=== PATIENT | male | born 1985 ===

== ENCOUNTER 2016-07-05 09:57 | Emergency (ER) | payer OTHER, MEDICAID ==
[2016-07-05 10:13] VITALS: BP 143/77; PULSE 63; RESP 16; TEMP 97.9; O2SAT 100
--- NOTE | 2016-07-05 11:14 | C.PDOC ---
History Of Present Illness 31 YO MALE C/O PERSISTENT, NON-HEALING WOUND ON HIS LEFT THUMB FOR 2 WEEKS. INITIAL INJURY 2 WEEKS AGO SUSTAINED DURING ACCIDENTAL CUT AT WORK. PT RECEIVED 7 STITCHES AT WORK. PT STATES HIS JOB WANTED HIM TO CONTINUE WORKING. NOTES STITCHES CONTINUED TO POP OPEN, WITH PUS DRAINAGE FROM THE WOUND. PATIENT C/O PAIN AND SWELLING TO THE AREA. PT STATES HE IS RIGHT HANDED. PT NOTES HE HAS BEEN USING PEROXIDE TO CLEAN THE WOUND. DENIES FEVER, CHILLS, OR OTHER COMPLAINTS. EXAM 2 CM LINEAR LAC, MEDIAN BASE OF LEFT THUMB, WITH SOME LOCAL SWELLING AND TENDERNESS. NO ABSCESS, NO OBVIOUS PUS. OLD HEALING WOUND. NO CELLULITIS. GOOD ROM OF THUMB. Time Seen by Provider: 07/05/16 10:57 Chief Complaint (Nursing): Finger,Hand,&Wrist History Per: Patient History/Exam Limitations: no limitations Onset/Duration Of Symptoms: Days Ago (14), Laceration Current Symptoms Are (Timing): Still Present Location Of Injury: Left: Hand (THUMB) Quality Of Symptoms: Painful, Swollen Recent travel outside of the [place]: No Past Medical History Reviewed: Historical Data, Nursing Documentation, Vital Signs Vital Signs: Last Vital Signs Temp 97.9 F 07/05/16 10:12 Pulse 63 07/05/16 10:12 Resp 16 07/05/16 10:12 BP 143/77 07/05/16 10:12 Pulse Ox 100 07/05/16 11:24 - Medical History PMH: No Chronic Diseases Family History: States: Unknown Family Hx - Social History Hx Alcohol Use: Yes Hx Substance Use: No - Immunization History Hx Tetanus Toxoid Vaccination: Yes Hx Influenza Vaccination: No Hx Pneumococcal Vaccination: No Review Of Systems Except As Marked, All Systems Reviewed And Found Negative. Constitutional: Negative for: Fever, Chills Skin: Positive for: Other (OLD LACERATION MEDIAL LEFT THUMB) Neurological: Negative for: Weakness, Numbness Physical Exam - Physical Exam Appears: Non-toxic, No Acute Distress Skin: Warm, Dry Head: Atraumatic, Normacephalic Extremity: Normal ROM, Capillary Refill (< 2 SEC.), No Deformity, Other (2.0 CM LINEAR LACERATION TO MEDIAL BASE OF LEFT THUMB, WITH SOME LOCAL SWELLING AND TENDERNESS. NO ABSCESS, NO OBVIOUS PUS. OLD HEALING WOUND. NO CELLULITIS. GOOD ROM OF THUMB. ) Pulses: Left Radial: Normal, Right Radial: Normal Neurological/Psych: Oriented x3, Normal Motor, Normal Sensation ED Course And Treatment O2 Sat by Pulse Oximetry: 100 (RA) Pulse Ox Interpretation: Normal Progress - Re-Evaluation Re-evaluation Note: 07/05/16 11:21 PO ABX, TOPICAL ABX, SPLINT. REFERRAL. Disposition Counseled Patient/Family Regarding: Diagnosis, Need For Followup, Rx Given - Disposition Referrals: [facility] [Outside] [facility] [Outside] Disposition: HOME/ ROUTINE Disposition Time: 11:12 Condition: IMPROVED Prescriptions: Bacitracin [Bacitracin Opht OINT] 1 applic OD Q4 #1 tube Cephalexin [cephalexin] 500 mg PO Q6 #28 cap Ibuprofen [Motrin] 600 mg PO Q6 #30 tab Instructions: Chronic Wound Care (ED) Forms: Work Excuse - Clinical Impression Clinical Impression: Chronic wound of extremity, Cellulitis - Scribe Statement The provider has reviewed the documentation as recorded by the Bull PATTON Provider Attestation: All medical record entries made by the Bull were at my direction and personally dictated by me. I have reviewed the chart and agree that the record accurately reflects my personal performance of the history, physical exam, medical decision making, and the department course for this patient. I have also personally directed, reviewed, and agree with the discharge instructions and disposition. Orthopedic Care Application Of:: Thumb Spica Splint (L HAND)
[2016-07-05] MEDS ORDERED: Bacitracin 500 Units/gm Oint Foilpak UD TOP ONE (11:15)
[2016-07-05] MEDS ORDERED: Bacitracin 500 Units/gm Oint Foilpak UD ONE (11:19)
== END 2016-07-05 11:57 | disposition home or self-care (01) ==
LOC: C.ER 09:57
DX: S61.012D Laceration without foreign body of left thumb without damage to nail, subsequent encounter (principal); L03.012 Cellulitis of left finger; W45.8XXD Other foreign body or object entering through skin, subsequent encounter; Y92.89 Other specified places as the place of occurrence of the external cause; Y99.0 Civilian activity done for income or pay

== ENCOUNTER 2016-10-28 12:04 | Emergency (ER) | payer MEDICAID, OTHER ==
[2016-10-28 12:10] VITALS: O2SAT 99
--- NOTE | 2016-10-28 12:55 | C.PDOC ---
History Of Present Illness A 31 y/o M c/o RLQ pain for a month. Pain is worse when coughing, straining, and lifting weights. Notes a bulge to the RLQ that is now resolved. Denies fever , chills, dysuria, scrotal pain, penile discharge, constipation, nausea, vomiting, diarrhea, or any other complaints. Time Seen by Provider: 10/28/16 12:26 Chief Complaint (Nursing): GI Problem History Per: Patient History/Exam Limitations: no limitations Onset/Duration Of Symptoms: Days (A month) Current Symptoms Are (Timing): Still Present Severity: Mild Location Of Pain/Discomfort: RLQ Radiation Of Pain To:: None Quality Of Discomfort: "Pain" Associated Symptoms: denies: Fever, Chills, Nausea, Vomiting, Diarrhea, Constipation Exacerbating Factors: Cough, Other (Straining and lifting weights) Recent travel outside of the [place]: No Additional History Per: Patient Past Medical History Reviewed: Historical Data, Nursing Documentation, Vital Signs Vital Signs: Last Vital Signs Temp 97.8 F 10/28/16 12:09 Pulse 85 10/28/16 12:09 Resp 18 10/28/16 12:09 BP 108/71 10/28/16 12:09 Pulse Ox 99 10/28/16 15:55 Family History: States: Unknown Family Hx - Social History Hx Alcohol Use: Yes Hx Substance Use: No - Immunization History Hx Tetanus Toxoid Vaccination: Yes Hx Influenza Vaccination: No Hx Pneumococcal Vaccination: No Review Of Systems Except As Marked, All Systems Reviewed And Found Negative. Constitutional: Negative for: Fever, Chills Gastrointestinal: Positive for: Abdominal Pain (RLQ pain). Negative for: Nausea , Vomiting, Diarrhea, Constipation Genitourinary: Negative for: Dysuria, Penile Discharge, Scrotal Pain Physical Exam - Physical Exam Appears: Non-toxic, No Acute Distress Skin: Warm, Dry Head: Atraumatic, Normacephalic Cardiovascular: Rhythm Regular Respiratory: Normal Breath Sounds, No Accessory Muscle Use, No Rales, No Rhonchi , No Wheezing Gastrointestinal/Abdominal: Soft, No Tenderness Male Genital: No Testicular Tenderness, No Other (No hernia palpable in the inguinal region. No penile discharge, no scrotal tenderness.) Extremity: Normal ROM (x4) Neurological/Psych: Oriented x3, Normal Speech, Normal Cognition Gait: Steady ED Course And Treatment - Laboratory Results Result Diagrams: 10/28/16 13:44 10/28/16 13:44 O2 Sat by Pulse Oximetry: 99 (RA) Pulse Ox Interpretation: Normal Medical Decision Making Medical Decision Making: Impression: 31 y/o M c/o RLQ pain for a month. Plans: * Blood work up * Toradol * UA * Reassess * * CT shows "Thick-walled loops of small bowel in the left upper quadrant consistent with enteritis. The appendix is not identified. No secondary signs of acute appendicitis identified." Patient is tolerating po with soft NT/ND abdomen Disposition - Disposition Disposition: HOME/ ROUTINE Disposition Time: 15:54 Condition: GOOD Additional Instructions: Take full course of antibiotics. Return to ED if condition worsens. Take full course of antibiotics. Prescriptions: Ciprofloxacin [Cipro] 500 mg PO BID #20 tab Metronidazole [Flagyl] 500 mg PO TID #30 tab Instructions: Enteritis (ED) Forms: [employer] (Sami), [employer] (Kinyarwanda) Print Language: CZECH - Clinical Impression Clinical Impression: Enteritis - Scribe Statement The provider has reviewed the documentation as recorded by the Scribtaisha daniels All medical record entries made by the Amandaibtaisha were at my direction and personally dictated by me. I have reviewed the chart and agree that the record accurately reflects my personal performance of the history, physical exam, medical decision making, and the department course for this patient. I have also personally directed, reviewed, and agree with the discharge instructions and disposition.
[2016-10-28 13:52] LABS: BASO # 0.1 K/uL (0.0-0.2); BASO % 0.6 % (0.0-2.0); EOS # 0.5 K/uL (0.0-0.7); EOS % 4.2 % (0.0-4.0); HEMOGLOBIN 13.5 g/dL (12.0-18.0); LYMPH # 2.7 K/uL (1.0-4.3); LYMPH % 20.4 % (20.0-40.0); MEAN CELL VOLUME 97.1 fL (80.0-94.0); MEAN CORPUSCULAR HEMOGLOBIN 32.5 pg (27.0-31.0); MEAN CORPUSCULAR HGB CONC 33.5 g/dL (33.0-37.0); MEAN PLATELET VOLUME 7.9 fL (7.2-11.7); MONO # 0.8 K/uL (0.0-0.8); MONO % 6.2 % (0.0-10.0); NEUT # 8.9 K/uL (1.8-7.0); NEUT % 68.6 % (50.0-75.0); NRBC % 0.1 % (0.0-2.0); RBC 4.14 Mil/uL (4.40-5.90); RED CELL DISTRIBUTION WIDTH 13.2 % (11.5-14.5)
[2016-10-28 14:00] LABS: URINE BILIRUBIN NEGATIVE (NEGATIVE); URINE BLOOD NEGATIVE (NEGATIVE); URINE CLARITY Clear (Clear); URINE COLOR Yellow (YELLOW); URINE GLUCOSE (UA) NORMAL (Normal); URINE LEUKOCYTE ESTERASE NEG Leu/uL (Negative); URINE NITRATE NEGATIVE (NEGATIVE); URINE PROTEIN NEGATIVE (NEGATIVE); URINE UROBILINOGEN NORMAL mg/dL (0.2-1.0)
[2016-10-28 14:14] LABS: ALBUMIN 3.5 g/dL (3.5-5.0)
[2016-10-28 14:17] LABS: ALB/GLOB RATIO 1.4 (1.0-2.1); AST/SGOT 29 U/L (17-59); GFR AFRICAN-AMERICAN > 60; GFR NON-AFRICAN AMERICAN > 60
[2016-10-28 14:18] LABS: ALT/SGPT 29 U/L (21-72); BLOOD UREA NITROGEN 10 mg/dL (9-20); CALCIUM 8.9 mg/dl (8.6-10.4); LIPASE 33 U/L (23-300)
[2016-10-28] MEDS ORDERED: Iodixanol 320 mg/ml 150 ml Bottle IV ONE (14:49)
--- NOTE | 2016-10-28 15:37 | CT ---
PROCEDURE: CT Abdomen and Pelvis with contrast HISTORY: RLQ pain COMPARISON: None available. TECHNIQUE: Contrast dose: 100 cc Visipaque 320 Radiation dose: Total exam DLP = 333.53 mGy-cm. This CT exam was performed using one or more of the following dose reduction techniques: Automated exposure control, adjustment of the mA and/or kV according to patient size, and/or use of iterative reconstruction technique. FINDINGS: LOWER THORAX: No visible consolidation, pleural effusion, or pneumothorax. LIVER: Unremarkable. GALLBLADDER AND BILE DUCTS: Decompressed gallbladder appears otherwise unremarkable. PANCREAS: Unremarkable. SPLEEN: Unremarkable. ADRENALS: Unremarkable. KIDNEYS AND URETERS: The kidneys enhance symmetrically. No hydronephrosis or obstructing calculus identified. VASCULATURE: No aortic aneurysm. BOWEL: Stomach is nondistended. Lack of oral contrast limits evaluation for bowel pathology. Bowel loops appear within normal limits of caliber without evidence of obstruction. Thick-walled loops of small bowel compatible with enteritis. APPENDIX: The appendix is not identified. No secondary signs of acute appendicitis. PERITONEUM: No significant free fluid. No definite free air. LYMPH NODES: No bulky adenopathy identified. BLADDER: Unremarkable. REPRODUCTIVE: Unremarkable. BONES: No acute osseous abnormality is detected. OTHER FINDINGS: None. IMPRESSION: Thick-walled loops of small bowel in the left upper quadrant consistent with enteritis. The appendix is not identified. No secondary signs of acute appendicitis identified.
[2016-10-28] MEDS ORDERED: Ciprofloxacin 400mg/200ml D5W 400 MG/200 ML BAG IVPB STA (15:38)
[2016-10-28] MEDS ORDERED: metroNIDAZOLE IV 500 mg/100 ml 500 MG/100 ML BAG IVPB STA (15:38)
[2016-10-28] MEDS ORDERED: metroNIDAZOLE IV 500 mg/100 ml 500 MG/100 ML BAG ONE (16:04)
[2016-10-28] MEDS ORDERED: Ciprofloxacin 400mg/200ml D5W 400 MG/200 ML BAG IVPB ONE (16:45)
[2016-10-28 17:59] VITALS: BP 116/76; PULSE 59; RESP 16; TEMP 97.9
== END 2016-10-28 18:40 | disposition home or self-care (01) ==
LOC: C.ER 12:04
DX: K52.9 Noninfective gastroenteritis and colitis, unspecified (principal)
CPT/HCPCS: 74177; 80053; 81001; 83690; 85025; 96365; 96366; 96367; 96375; 99285; J0744; J1885; Q9965